=== PATIENT | male | born 2000 | race Two or more races ===

== ENCOUNTER 2019-02-22 06:30 | Emergency (ER) | payer OTHER ==
[~2019-02-22] VITALS: Ht 177.8 cm; Wt 108.9 kg
[2019-02-22] MEDS ORDERED: ERYT1OIN6 OP (07:08)
--- NOTE | 2019-02-22 07:09 | PHYS DOC ---
Past History Past Medical History: No Pertinent History Past Surgical History: Tonsillectomy, Other Alcohol Use: None Drug Use: None Adult General Chief Complaint Chief Complaint: EYE PROBLEMS HPI HPI 18-year-old male presents with right eye redness and discharge. The patient hasn't been discharge yesterday and mild eye irritation. Overnight, he had thicker discharge in his eye was matted shut when he woke up. 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 They're very concerned with disease transmission in the long-term system. The pat ient does not wear contacts. He denies risk of foreign body. No change in vision. He has no other complaints. Review of Systems Review of Systems Constitutional: Denies fever or chills [] Eyes: Denies change in visual acuity. Redness with discharge. [] HENT: Denies nasal congestion or sore throat [] Respiratory: Denies cough or shortness of breath [] Cardiovascular: No additional information not addressed in HPI [] GI: Denies abdominal pain, nausea, vomiting, bloody stools or diarrhea [] : Denies dysuria or hematuria [] Musculoskeletal: Denies back pain or joint pain [] Integument: Denies rash or skin lesions [] Neurologic: Denies headache, focal weakness or sensory changes [] Endocrine: Denies polyuria or polydipsia [] All other systems were reviewed and found to be within normal limits, except as documented in this note. Allergies Allergies Allergies Coded Allergies Type Severity Reaction Last Updated Verified acetaminophen Allergy Unknown 02/22/19 Yes hydrocodone Allergy Unknown 02/22/19 Yes Physical Exam Physical Exam Constitutional: Well developed, well nourished, no acute distress, non-toxic appearance. [] HENT: Normocephalic, atraumatic, bilateral external ears normal, oropharynx moist, no oral exudates, nose normal. [] Eyes: PERRLA, EOMI, conjunctiva right eye erythematous with discharge. [] Neck: Normal range of motion, no tenderness, supple, no stridor. [] Cardiovascular:Heart rate regular rhythm, no murmur [] Lungs & Thorax: Bilateral breath sounds clear to auscultation [] Abdomen: Bowel sounds normal, soft, no tenderness, no masses, no pulsatile masses. [] Skin: Warm, dry, no erythema, no rash. [] Back: No tenderness, no CVA tenderness. [] Extremities: No tenderness, no cyanosis, no clubbing, ROM intact, no edema. [] Neurologic: Alert and oriented X 3, normal motor function, normal sensory function, no focal deficits noted. [] Psychologic: Affect normal, judgement normal, mood normal. [] Current Patient Data Vital Signs Vital Signs Date Time Temp Pulse Resp B/P (MAP) Pulse Ox O2 Delivery O2 Flow Rate FiO2 02/22/19 06:33 98.1 98 16 96 Room Air EKG EKG [] Radiology/Procedures Radiology/Procedures [] Course & Med Decision Making Course & Med Decision Making Pertinent Labs and Imaging studies reviewed. (See chart for details) The patient clearly has discharge from the right eye. His conjunctivae are erythematous. It is impossible to differentiate between viral and bacterial. Due to the nature of his job, I will go ahead and treat him with erythromycin ointment as a bacterial conjunctivitis. He is stable for discharge at this time. [] Dragon Disclaimer Dragon Disclaimer This electronic medical record was generated, in whole or in part, using a voice recognition dictation system. Departure Departure: Impression: Primary Impression: Bacterial conjunctivitis of right eye Disposition: HOME, SELF-CARE Condition: STABLE Patient Instructions: Bacterial Conjunctivitis, [id number] Scripts Erythromycin Base (Erythromycin) 1 Gm Oint...g. 1 GM OP TID for bacterial conjunctivitis for 7 Days, #1 [facility] [place] MARU PHILLIP DO 02/22/19 MARU PHILLIP DO Feb 22, 2019 07:09
== END 2019-02-22 07:33 | disposition home or self-care (01) ==
LOC: ER 06:30
DX: H10.89 Other conjunctivitis (principal); Z88.5 Allergy status to narcotic agent; Z88.6 Allergy status to analgesic agent
CPT/HCPCS: 99283

== ENCOUNTER 2019-09-06 06:29 | Emergency (ER) | payer OTHER ==
[~2019-09-06] VITALS: Ht 177.8 cm; Wt 119.0 kg
[2019-09-06 06:29] VITALS: BP 184/94
[~2019-09-06 06:29] MED LIST: ERYT1OIN6 OP
[2019-09-06] MEDS ORDERED: CIPR2.5D LEFTEYE (06:48)
--- NOTE | 2019-09-06 06:48 | PHYS DOC ---
Past History Past Medical History: No Pertinent History Past Surgical History: Tonsillectomy, Other Alcohol Use: None Drug Use: None Adult General Chief Complaint Chief Complaint: EYE PROBLEMS HPI HPI Patient is a 18-year-old male who presents with complaint of crusting of the left eye upon awakening this morning. He has been around no sick contacts and has no other symptoms. History of viral conjunctivitis in the past. The right eye is unaffected. No medication taken prior to arrival. [place] told to come to the ER for further evaluation as his medic has no prescribing capabilities. Review of Systems Review of Systems All other systems were reviewed and found to be within normal limits, except as documented in this note. Allergies Allergies Allergies Coded Allergies Type Severity Reaction Last Updated Verified acetaminophen Allergy Unknown 02/22/19 Yes hydrocodone Allergy Unknown 02/22/19 Yes Physical Exam Physical Exam Constitutional: Well developed, well nourished, no acute distress, non-toxic appearance. [] HENT: Normocephalic, atraumatic, bilateral external ears normal, oropharynx moist, no oral exudates, nose normal. [] Eyes: PERRLA, EOMI, left conjunctival injection that is mild with minimal crusting. No evidence of purulent drainage. The right conjunctive is normal. Neck: Normal range of motion, no tenderness, supple, no stridor. [] Cardiovascular:Heart rate regular rhythm, no murmur [] Lungs & Thorax: Bilateral breath sounds clear to auscultation [] Abdomen: Bowel sounds normal, soft, no tenderness, no masses, no pulsatile masses. [] Skin: Warm, dry, no erythema, no rash. [] Back: No tenderness, no CVA tenderness. [] Extremities: No tenderness, no cyanosis, no clubbing, ROM intact, no edema. [] Neurologic: Alert and oriented X 3, normal motor function, normal sensory function, no focal deficits noted. [] Psychologic: Affect normal, judgement normal, mood normal. [] EKG EKG [] Radiology/Procedures Radiology/Procedures [] Course & Med Decision Making Course & Med Decision Making Pertinent Labs and Imaging studies reviewed. (See chart for details) Patient seen for crusting of the left eye. Examination and history are consistent with viral conjunctivitis but [place] I will go ahead and cover him with antibiotics as well. Work note for 3 days. Dragon Disclaimer [place] Disclaimer This electronic medical record was generated, in whole or in part, using a voice recognition dictation system. Departure Departure: Impression: Primary Impression: Viral conjunctivitis of left eye Disposition: HOME, SELF-CARE Condition: STABLE Referrals: PCP,UNKNOWN (PCP) Patient Instructions: Eye - Viral Conjunctivitis Scripts Ciprofloxacin Hcl (CIPROFLOXACIN HCL) 2.5 Ml Drops 2 DROP LEFTEYE Q4HRS W/A for Conjunctivitis for 5 Days, #2.5 ML 0 Refills Prov: PORFIRIO LOU DO 09/06/19 PORFIRIO LOU DO Sep 06, 2019 06:48
== END 2019-09-06 06:55 | disposition home or self-care (01) ==
LOC: ER 06:29
DX: B30.9 Viral conjunctivitis, unspecified (principal); Z88.6 Allergy status to analgesic agent; Z88.5 Allergy status to narcotic agent
CPT/HCPCS: 99283